=== PATIENT | female | born 1985 | race Caucasian/White ===

== ENCOUNTER 2020-08-05 00:04 | Inpatient (IN) ==
[2020-08-05] MEDS ORDERED: ONDANSETRON 4 MG/2 ML VIAL IV PRN (00:47)
[2020-08-05] MEDS ORDERED: BUTORPHANOL 2 MG/ML VIAL IV PRN (00:47)
[2020-08-05] MEDS: LACTATED RINGERS 1,000 ML IV SCH ×2 (01:00→04:05)
[2020-08-05] MEDS ORDERED: OXYTOCIN/LR 20 UNIT/1,000 ML BAG IV SCH (01:00)
[2020-08-05 01:23] LABS: Basophils % 0.2 % (0.0-0.8); Eosinophils # 0.1 10*3/uL (0.0-0.87); Eosinophils % 1.3 % (0.00-10.9); Hematocrit 36.2 VOL% (35.7-47.0); Hemoglobin 12.3 GM/DL (12.0-16.0); Immature Granulocytes % 0.4 %; Immature Granulocytes Absolute 0.04 #; Lymphocytes # 2.5 10*3/uL (1.4-4.0); Lymphocytes % 26.9 % (21.3-54.2); Mean Corpuscular Volume 88.3 FL (87-102); Mean Platelet Volume 11.2 FL (9.6-12.0); Monocytes % 7.4 % (1.7-12.7); Neutrophils % 63.8 % (38.7-73.9); Platelet Count 196 T/CUMM (130-400); White Blood Count 9.4 T/CUMM (4-12)
[2020-08-05] MEDS ORDERED: ONDANSETRON 4 MG/2 ML VIAL IV ONE (03:02)
[2020-08-05] MEDS ORDERED: diphenhydrAMINE 50 MG/1 ML VIAL IV PRN ×2 (03:02)
[2020-08-05] MEDS ORDERED: NALOXONE 0.4 MG/ML VIAL IV PRN (03:02)
[2020-08-05] MEDS ORDERED: ePHEDrine 50 MG/ML VIAL IV PRN (03:02)
[2020-08-05] MEDS ORDERED: FAMOTIDINE 20 MG/2 ML VIAL IV ONE (03:08)
[2020-08-05] MEDS ORDERED: CITRIC ACID/SODIUM CITRATE 30 ML UDCUP PO ONE (03:08)
[2020-08-05] MEDS ORDERED: fentaNYL 2 MCG/ROPIV 0.2% EPID 100 ML EPIDURAL SCH (03:30)
[2020-08-05 05:19] LABS: Bilirubin,Urine Negative (Negative); Blood, Urine Negative (Negative); Glucose,Urine (UA) Negative (Negative); Ketones,Urine Negative (Negative); Nitrite,Urine Negative (Negative); Protein,Urine Negative; Squamous Epithelial Cell,Urine Occasional /HPF (0-10); Urine Appearance CLEAR (Clear); Urine Color Yellow (Yellow); Urine Specific Gravity 1.011 (1.001-1.035); Urine Urobilinogen < 2.0 EU/DL (0.2-1.0); WBC,Urine <1 /HPF (0-6)
[2020-08-05] MEDS ORDERED: TRANEXAMIC ACID 1,000 MG/10 ML VIAL ONE (12:20)
[2020-08-05] MEDS ORDERED: miSOPROStoL 200 MCG TABLET ONE (12:20)
[2020-08-05] MEDS ORDERED: LIDOCAINE 1% 50 ML VIAL ONE (12:21)
[2020-08-05] MEDS ORDERED: SODIUM CHLORIDE 0.9% 0 ML IV ONE (12:21)
[2020-08-05] MEDS ORDERED: CARBOPROST TROMETHAMINE 250 MCG/ML AMP IM ONE (12:21)
[2020-08-05] MEDS ORDERED: METHYLERGONOVINE 0.2 MG/1 ML AMP ONE (12:21)
[2020-08-05 13:24] LABS: Cord Arterial Blood HCO3 21.8 MMOL/L
[2020-08-05 13:33] LABS: Cord Venous Blood HCO3 21.4 MMOL/L; Cord Venous Blood PCO2 36.8 MMHG; Cord Venous Blood PO2 34.6 MMHG
[2020-08-05] MEDS ORDERED: IBUPROFEN 800 MG TABLET PO ONE (14:02)
[2020-08-05] MEDS ORDERED: OXYTOCIN/LR 20 UNIT/1,000 ML BAG IV ONE (15:25)
[2020-08-05] MEDS ORDERED: oxyCODONE/ACETAMINOPHEN 5-325 MG TABLET PO PRN (20:00)
[2020-08-05] MEDS ORDERED: IBUPROFEN 800 MG TABLET PO PRN (20:00)
[2020-08-05] MEDS: DOCUSATE SODIUM 100 MG CAPSULE PO PRN (20:30)
[2020-08-05] MEDS: oxyCODONE/ACETAMINOPHEN 5-325 MG TABLET PO PRN (20:32)
[2020-08-06] MEDS: oxyCODONE/ACETAMINOPHEN 5-325 MG TABLET PO PRN ×2 (04:01→14:01)
[2020-08-06 06:01] LABS: Basophils % 0.2 % (0.0-0.8); Eosinophils # 0.1 10*3/uL (0.0-0.87); Eosinophils % 1.3 % (0.00-10.9); Hematocrit 30.4 VOL% (35.7-47.0); Hemoglobin 10.2 GM/DL (12.0-16.0); Immature Granulocytes % 0.4 %; Immature Granulocytes Absolute 0.04 #; Lymphocytes # 2.7 10*3/uL (1.4-4.0); Lymphocytes % 28.4 % (21.3-54.2); Mean Corpuscular HGB Conc 33.6 GM/DL (32-36); Mean Corpuscular Volume 89.4 FL (87-102); Mean Platelet Volume 11.5 FL (9.6-12.0); Neutrophils % 62.7 % (38.7-73.9); Platelet Count 157 T/CUMM (130-400); Red Cell Distribution Width 14.2 % (9.3-17.3); White Blood Count 9.5 T/CUMM (4-12)
[2020-08-06] MEDS ORDERED: BENZOCAINE 20%/MENTHOL 0.5% SPRAY 56 GM CAN TOP PRN (08:44)
[2020-08-06] MEDS: DOCUSATE SODIUM 100 MG CAPSULE PO PRN (08:46)
[2020-08-06 11:45] VITALS: BP 118/76
[2020-08-06] MEDS ORDERED: DIPH/TET/ACEL PERT BOOSTER VACCINE 0.5 ML VIAL IM ONE (15:24)
== END 2020-08-06 16:15 | disposition home or self-care (01) | DRG 807 ==
LOC: N.LDOUT 00:04 → N.LD 00:11 → N.OB 17:15
PROVIDERS: ADMIT Obstetrics & Gynecology; ATTEND Obstetrics & Gynecology